=== PATIENT | male | born 1960 | race Caucasian/White ===

== ENCOUNTER 2020-11-11 14:07 | Emergency (ER) | payer OTHER ==
[~2020-11-11] VITALS: Ht 187 cm; Wt 122.0 kg
[~2020-11-11 14:07] MED LIST: ACHD5005 PO; ASPI-624 PO; FENO145T PO; HYDR1TAB86; INSU100V5 SQ; Insulin Human Lispro SC; LISI2.5T; LISI40TA PO; MTF500TCR PO; OMEP-10 PO; PRD20T PO; VICODIN
[2020-11-11] MEDS ORDERED: ASPIRIN 81 MG CHEW (CHILDREN'S ASA) PO ONE (14:30)
--- NOTE | 2020-11-11 14:31 | ED Chest Pain ---
General Chief Complaint: Chest Pain Stated Complaint: HIGH BP Source: patient Exam Limitations: no limitations History of Present Illness Date Seen by Provider: Nov 11, 2020 Time Seen by Provider: 14:29 Initial Comments To ER with reports of chest pain and high blood pressure. This is been ongoing since he had Covid in September. The chest pain is left-sided heavy and pressure in nature. It then radiates up the left side of his neck. He does smoke 1 pack of cigarettes daily for the past 5 years. He is diabetic and he is overweight. His father had a CABG. He himself had a cardiac catheterization in 2013 here which showed nonobstructive coronary disease. He was able to play golf Sunday without any chest pain and activity does not bring about the chest pain. He also has a history of Galo's esophagus but this feels different. The pain has been intermittent but worsening over the past week. Timing/Duration: getting worse, intermittent Severity/Quality: moderate Location: central Radiation: no radiation Activities at Onset: none ASA po CASE SUPERVISOR: No NTG SL CASE SUPERVISOR: No Allergies and Home Medications Allergies Coded Allergies: naproxen (Unverified Allergy, Severe, TIA, 04/03/09) Patient Home Medication List Home Medication List Reviewed: Yes Aspirin (Aspirin) 81 Mg Tablet, 81 MG PO DAILY Prescribed by: BIANKA AG on 06/27/13 1537 Fenofibrate,Micronized (Tricor) 145 Mg Tablet, 1 TAB PO DAILY Prescribed by: BIANKA AG on 06/27/13 1506 Insulin Detemir (Levemir) 1 Unit/0.01 Ml Soln, 25 UNIT SQ HS Prescribed by: SID DUMONT on 06/27/13 1434 Lisinopril (Prinivil) 40 Mg Tablet, 40 MG PO DAILY Prescribed by: BIANKA AG on 06/27/13 1506 Metformin Hcl (Glucophage Xr) 500 Mg Tab, 500 MG PO DAILY@07 Prescribed by: SID DUMONT on 06/27/13 1434 Omeprazole (Prilosec 20 Mg) 20 Mg Capsule., 40 MG PO BID, (Reported) Entered as Reported by: HYACINTH HYATT on 04/03/09 0510 Pantoprazole Sodium (Protonix) 40 Mg Granpkt., 40 MG PO DAILY Prescribed by: TIEN DINERO on 11/11/20 1710 [Insulin Human Lispro] 1 UNIT/0.01 ML JESSE, 15 UNIT SC AC Prescribed by: SID DUMONT on 06/27/13 1434 Review of Systems Review of Systems Constitutional: see HPI EENTM: No Symptoms Reported Respiratory: No Symptoms Reported Cardiovascular: No Symptoms Reported Gastrointestinal: See HPI Genitourinary: No Symptoms Reported Musculoskeletal: no symptoms reported Skin: no symptoms reported Psychiatric/Neurological: No Symptoms Reported Endocrine: No Symptoms Reported Hematologic/Lymphatic: No Symptoms Reported Past Trgvrax-Ugnbgd-Qbnwvn Hx Past Medical History Asthma, COPD, Emphysema Reproductive Disorders: No Diabetes, Non-Insulin dep PTSD Family Medical History Cancer 19 FATHER 19 MOTHER Family history: Cardiovascular disease 19 FATHER Family history: Diabetes mellitus 19 MOTHER Family history: Thyroid disorder G8 SISTER Heart disease 19 FATHER History of - respiratory disease 19 FATHER Physical Exam Vital Signs Vital Signs - First Documented 11/11/20 14:10 Pulse 70 Resp 16 B/P (MAP) 205/129 (154) Pulse Ox 98 O2 Delivery Room Air Capillary Refill : Height, Weight, BMI Height: 6'2.00" Weight: 304lbs. oz. 137.959643lp; BMI Method:Stated General Appearance: No Apparent Distress, WD/WN, Other (Alert and oriented no distress. Hypertensive at 205/129 heart rate is 70 sinus with occasional PVC. EKG shows sinus rhythm at [address] segment elevation.) HEENT: PERRL/EOMI, TMs Normal Neck: Full Range of Motion, Normal Inspection Respiratory: No Accessory Muscle Use, No Respiratory Distress Cardiovascular: Regular Rate, Rhythm, Normal Peripheral Pulses Gastrointestinal: Normal Bowel Sounds, Non Tender, Soft Extremity: Normal Capillary Refill, Normal Inspection Neurologic/Psychiatric: Alert, Oriented x3 Skin: Normal Color, Warm/Dry Progress/Results/Core Measures Results/Orders Lab Results Laboratory Tests Test 11/11/20 14:20 11/11/20 16:26 Range/Units White Blood Count 9.6 4.3-11.0 10^3/uL Red Blood Count 5.26 4.30-5.52 10^6/uL Hemoglobin 16.4 13.3-17.7 g/dL Hematocrit 48 40-54 % Mean Corpuscular Volume 91 80-99 fL Mean Corpuscular Hemoglobin 31 25-34 pg Mean Corpuscular Hemoglobin Concent 34 32-36 g/dL Red Cell Distribution Width 14.2 10.0-14.5 % Platelet Count 241 130-400 10^3/uL Mean Platelet Volume 10.6 9.0-12.2 fL Immature Granulocyte % (Auto) 1 % Neutrophils (%) (Auto) 54 42-75 % Lymphocytes (%) (Auto) 33 12-44 % Monocytes (%) (Auto) 8 0-12 % Eosinophils (%) (Auto) 4 0-10 % Basophils (%) (Auto) 1 0-10 % Neutrophils # (Auto) 5.1 1.8-7.8 10^3/uL Lymphocytes # (Auto) 3.1 1.0-4.0 10^3/uL Monocytes # (Auto) 0.8 0.0-1.0 10^3/uL Eosinophils # (Auto) 0.4 H 0.0-0.3 10^3/uL Basophils # (Auto) 0.1 0.0-0.1 10^3/uL Immature Granulocyte # (Auto) 0.1 0.0-0.1 10^3/uL Prothrombin Time 12.5 12.2-14.7 SEC INR Comment 0.9 0.8-1.4 Activated Partial Thromboplast Time 36 H 24-35 SEC Sodium Level 138 135-145 MMOL/L Potassium Level 3.6 3.6-5.0 MMOL/L Chloride Level 102 98-107 MMOL/L Carbon Dioxide Level 25 21-32 MMOL/L Anion Gap 11 5-14 MMOL/L Blood Urea Nitrogen 13 7-18 MG/DL Creatinine 0.94 0.60-1.30 MG/DL Estimat Glomerular Filtration Rate 82 BUN/Creatinine Ratio 14 Glucose Level 125 H 70-105 MG/DL Calcium Level 9.4 8.5-10.1 MG/DL Corrected Calcium 9.4 8.5-10.1 MG/DL Magnesium Level 1.7 1.6-2.4 MG/DL Total Bilirubin 0.4 0.1-1.0 MG/DL Aspartate Amino Transf (AST/SGOT) 17 5-34 U/L Alanine Aminotransferase (ALT/SGPT) 23 0-55 U/L Alkaline Phosphatase 95 40-136 U/L Myoglobin 34.9 10.0-92.0 NG/ML Troponin I < 0.028 < 0.028 <0.028 NG/ML B-Type Natriuretic Peptide 276.2 H <100.0 PG/ML Total Protein 7.2 6.4-8.2 GM/DL Albumin 4.0 3.2-4.5 GM/DL My Orders Orders - TIEN DINERO APRN Cbc With Automated Diff (11/11/20 14:18) Magnesium (11/11/20 14:18) Chest 1 View, Ap/Pa Only (11/11/20 14:18) Ekg Tracing (11/11/20 14:18) Comprehensive Metabolic Panel (11/11/20 14:18) Myoglobin Serum (11/11/20 14:18) Protime With Inr (11/11/20 14:18) Partial Thromboplastin Time (11/11/20 14:18) O2 (11/11/20 14:18) Monitor-Rhythm Ecg Trace Only (11/11/20 14:18) Lipid Panel (11/12/20 06:00) Ed Iv/Invasive Line Start (11/11/20 14:18) BNP (11/11/20 14:18) Troponin I (11/11/20 14:18) Aspirin Chewable Tablet (Baby Aspirin Ch (11/11/20 14:30) Nitroglycerin 0.4 Mg Btl 25's (Nitrostat (11/11/20 14:30) Antacid Suspension (Mylanta Suspension (11/11/20 15:45) Lidocaine 2% Viscous 15 Ml (Xylocaine Vi (11/11/20 15:45) Acetaminophen Tablet (Tylenol Tablet) (11/11/20 15:45) Troponin I (11/11/20 16:07) Medications Given in ED Current Medications Medications Dose Ordered Sig/Jewel Route Start Time Stop Time Status Last Admin Dose Admin Acetaminophen 1,000 mg ONCE ONCE PO 11/11/20 15:45 11/11/20 15:46 DC 11/11/20 15:56 1,000 MG Al Hydrox/Mg Hydrox/Simethicone 30 ml ONCE ONCE PO 11/11/20 15:45 11/11/20 15:46 DC 11/11/20 15:54 30 ML Aspirin 324 mg ONCE ONCE PO 11/11/20 14:30 11/11/20 14:31 DC 11/11/20 14:38 324 MG Lidocaine HCl 15 ml ONCE ONCE PO 11/11/20 15:45 11/11/20 15:46 DC 11/11/20 15:54 15 ML Nitroglycerin 1 TAB Q 5 MIN X 3 NEEDED PRN SL 11/11/20 14:30 11/11/20 15:04 0.4 MG Vital Signs/I&O 11/11/20 14:10 Pulse 70 Resp 16 B/P (MAP) 205/129 (154) Pulse Ox 98 O2 Delivery Room Air Departure Communication (Admissions) Family Conversation He did have a cardiac catheterization here by Dr. Hanson in 2013 showing normal coronaries. 1544-chest pain is better though not entirely gone. He does have a headache from the nitro. I ordered a GI cocktail given his history of Galo's esophagus, his pain may be related to that. He does report he has been having some difficulty swallowing lately. Ordered some Tylenol for his headache. We will do a repeat troponin at the 2-hour mendel. He is concerned because his heart rate has been dropping to 30 for about 15 seconds for the past few mornings. 1713-HR 62 sinus with occasional PVC. BP 168/110. Will give norvasc and dc to home for outpatient follow up. NAME: LORETTA JIMENEZ [facility] REC#: [id number] PT STATUS: REG ER : 1960 PHYSICIAN: TIEN DINERO APRN ADMIT DATE: 11/11/20/ER Draft Date of Exam:11/11/20 CHEST 1 VIEW, AP/PA ONLY EXAMINATION: Chest 1 view HISTORY: Chest pain COMPARISON: 06/26/2013 FINDINGS: The lungs are clear without edema or pneumonia. No pleural effusion or pneumothorax. Heart size is normal. IMPRESSION: 1. Clear lungs. Dictated on workstation # [id number] Dict: 11/11/20 1439 Trans: 11/11/20 1440 [id number] Interpreted by: LORETTA BUENROSTRO MD Electronically signed by: Impression Primary Impression: Chest pain Additional Impression: GERD (gastroesophageal reflux disease) Disposition: 01 HOME, SELF-CARE Condition: Stable Departure-Patient Inst. Decision time for Depature: 17:09 Referrals: TRACY CURTIS MD FACP [facility] BECKI HOBBS MD NO,LOCAL PHYSICIAN (PCP) Primary Care Physician Patient Instructions: Chest Pain (DC) Add. Discharge Instructions: 1. Medication as directed. Follow-up with 1 the public health analyst. Call tomorrow make an appointment to be seen. All discharge instructions reviewed with patient and/or family. Voiced understanding. Scripts Pantoprazole Sodium (Protonix) 40 Mg Axel. 40 MG PO DAILY, #20 TAB Prov: TIEN DINERO APRN 11/11/20 TIEN DINERO APRN Nov 11, 2020 14:31
[2020-11-11 14:37] LABS: BASOPHILS # (AUTO) 0.1 10^3/uL (0.0-0.1); BASOPHILS % (AUTO) 1 % (0-10); EOSINOPHILS # (AUTO) 0.4 10^3/uL (0.0-0.3); EOSINOPHILS % (AUTO) 4 % (0-10); HEMATOCRIT 48 % (40-54); HEMOGLOBIN 16.4 g/dL (13.3-17.7); LYMPHOCYTES # (AUTO) 3.1 10^3/uL (1.0-4.0); LYMPHOCYTES % (AUTO) 33 % (12-44); MEAN CORPUSCULAR HEMOGLOBIN 31 pg (25-34); MEAN CORPUSCULAR HGB CONC 34 g/dL (32-36); MEAN CORPUSCULAR VOLUME 91 fL (80-99); MEAN PLATELET VOLUME 10.6 fL (9.0-12.2); MONOCYTES # (AUTO) 0.8 10^3/uL (0.0-1.0); MONOCYTES % (AUTO) 8 % (0-12); NEUTROPHILS # (AUTO) 5.1 10^3/uL (1.8-7.8); NEUTROPHILS % (AUTO) 54 % (42-75); PLATELET COUNT 241 10^3/uL (130-400); WHITE BLOOD COUNT 9.6 10^3/uL (4.3-11.0)
[2020-11-11] MEDS: NITROGLYCERIN 0.4 MG SL TABS BTL 25'S SL PRN ×3 (14:39→15:04)
--- NOTE | 2020-11-11 14:41 | Diagnostic Imaging Report ---
EXAMINATION: Chest 1 view HISTORY: Chest pain COMPARISON: 06/26/2013 FINDINGS: The lungs are clear without edema or pneumonia. No pleural effusion or pneumothorax. Heart size is normal. IMPRESSION: 1. Clear lungs. Dictated by: Dictated on workstation # [id number]
[2020-11-11 14:53] LABS: POTASSIUM 3.6 MMOL/L (3.6-5.0)
[2020-11-11 14:54] LABS: CALCIUM 9.4 MG/DL (8.5-10.1); INR 0.9 (0.8-1.4); PROTHROMBIN TIME PATIENT 12.5 SEC (12.2-14.7)
[2020-11-11 14:55] LABS: TOTAL PROTEIN 7.2 GM/DL (6.4-8.2)
[2020-11-11 14:57] LABS: BILIRUBIN,TOTAL 0.4 MG/DL (0.1-1.0)
[2020-11-11 14:59] LABS: CREATININE SERUM 0.94 MG/DL (0.60-1.30)
[2020-11-11 15:02] LABS: MAGNESIUM 1.7 MG/DL (1.6-2.4)
[2020-11-11] MEDS ORDERED: ANTACID SUSP 30 ML UDC (MYLANTA) PO ONE (15:45)
[2020-11-11] MEDS ORDERED: LIDOCAINE 2% VISCOUS 15 ML UDC PO ONE (15:45)
[2020-11-11] MEDS ORDERED: ACETAMINOPHEN 500 MG TAB (TYLENOL) PO ONE (15:45)
[2020-11-11] MEDS ORDERED: PANT40SU PO (17:10)
[2020-11-11] MEDS ORDERED: amLODIPine 5 MG (NORVASC) TAB PO ONE (17:15)
[2020-11-11 17:33] VITALS: BP 160/104
[2020-11-12] MEDS ORDERED: AMLO10TA4 PO (12:04)
== END 2020-11-11 17:33 | disposition home or self-care (01) ==
LOC: EDUNIT# 14:07 → ER 14:09
DX: R07.89 Other chest pain (principal); K21.9 Gastro-esophageal reflux disease without esophagitis; E11.9 Type 2 diabetes mellitus without complications; J43.9 Emphysema, unspecified; Z79.4 Long term (current) use of insulin; Z79.82 Long term (current) use of aspirin
CPT/HCPCS: 36415; 71045; 80053; 83735; 83874; 83880; 84484; 85025; 85610; 85730; 93005; 93041

== ENCOUNTER 2020-11-12 10:08 | Emergency (ER) | payer OTHER ==
[~2020-11-12] VITALS: Ht 187.9 cm; Wt 124.7 kg
[~2020-11-12 10:08] MED LIST changes: +PANT40SU PO
--- NOTE | 2020-11-12 10:58 | ED Chest Pain ---
General Chief Complaint: Cardiac/General Problems Stated Complaint: HIGH BP Nursing Triage Note: PT AMB TO RM 3 WITH COMPLAINT OF SOB, DIZZY, AND HTN. WAS SEEN IN ER YESTERDAY FOR SAME COMPLAINT. STATES IN THE MORNING, HR WILL DROP INTO 30s Source: patient Exam Limitations: no limitations History of Present Illness Date Seen by Provider: Nov 12, 2020 Time Seen by Provider: 10:40 Initial Comments To ER by private vehicle with reports of shortness of breath dizziness and high blood pressure. He was seen in ER yesterday for the same with 2 troponins. He was most worried yesterday because his heart rate would drop into the 30s in the mornings he states. It does this until about 2 PM and then it goes back to normal. He went home after being discharged yesterday and watched a football game with friends and felt well. This morning he got up and initially felt well but then again felt his pulse and could barely feel it and checked his blood p ressure and the machine read it to be about 30. Despite that his blood pressure was 180s over 110. He is on lisinopril for hypertension. No chest pain today. Timing/Duration: changing over time Severity/Quality: moderate Radiation: no radiation Prior CP/Workup: no prior chest pain ASA po CANDLE MAKING SUPERVISOR: No NTG SL CANDLE MAKING SUPERVISOR: No Allergies and Home Medications Allergies Coded Allergies: naproxen (Unverified Allergy, Severe, TIA, 04/03/09) Patient Home Medication List Home Medication List Reviewed: Yes Aspirin (Aspirin) 81 Mg Tablet, 81 MG PO DAILY Prescribed by: BIANKA AG on 06/27/13 1537 Fenofibrate,Micronized (Tricor) 145 Mg Tablet, 1 TAB PO DAILY Prescribed by: BIANKA AG on 06/27/13 1506 Insulin Detemir (Levemir) 1 Unit/0.01 Ml Soln, 25 UNIT SQ HS Prescribed by: SID DUMONT on 06/27/13 1434 Lisinopril (Prinivil) 40 Mg Tablet, 40 MG PO DAILY Prescribed by: BIANKA AG on 06/27/13 1506 Metformin Hcl (Glucophage Xr) 500 Mg Tab, 500 MG PO DAILY@07 Prescribed by: SID DUMONT on 06/27/13 1434 Omeprazole (Prilosec 20 Mg) 20 Mg Capsule.dr 40 MG PO BID, (Reported) Entered as Reported by: HYACINTH HYATT on 04/03/09 0510 Pantoprazole Sodium (Protonix) 40 Mg , 40 MG PO DAILY Prescribed by: TIEN DINERO on 11/11/20 1710 [Insulin Human Lispro] 1 UNIT/0.01 ML JESSE, 15 UNIT SC AC Prescribed by: SID DUMONT on 06/27/13 1434 Review of Systems Review of Systems Constitutional: see HPI EENTM: No Symptoms Reported Respiratory: No Symptoms Reported Cardiovascular: See HPI, Irregular Heart Rate Gastrointestinal: See HPI Genitourinary: No Symptoms Reported Musculoskeletal: no symptoms reported Skin: no symptoms reported Psychiatric/Neurological: No Symptoms Reported Endocrine: No Symptoms Reported Hematologic/Lymphatic: No Symptoms Reported Past Pxozlhd-Lgtdww-Nsmscf Hx Patient Social History Tobacco Use?: Yes Tobacco type used: Cigarettes Smoking Status: Current Everyday Smoker Use of E-Cig and/or Vaping dev: No Alcohol Use?: Yes Alcohol Frequency: Couple times a week Pt feels they are or have been: No Past Medical History Asthma, COPD, Emphysema Reproductive Disorders: No Diabetes, Non-Insulin dep PTSD Family Medical History Cancer 19 FATHER 19 MOTHER Family history: Cardiovascular disease 19 FATHER Family history: Diabetes mellitus 19 MOTHER Family history: Thyroid disorder G8 SISTER Heart disease 19 FATHER History of - respiratory disease 19 FATHER Physical Exam Vital Signs Vital Signs - First Documented 11/12/20 10:25 Pulse 68 Resp 20 B/P (MAP) 173/113 (133) Pulse Ox 94 O2 Delivery Room Air Capillary Refill : Less Than 3 Seconds Height, Weight, BMI Height: 6'2.00" Weight: 304lbs. oz. 137.132128bi; 35.00 BMI Method:Stated General Appearance: No Apparent Distress, WD/WN, Other (Alert and oriented no distress. No nystagmus. Heart rate is in the 70s sinus with occasional PVC. Blood pressure 179/110.) HEENT: PERRL/EOMI, TMs Normal Respiratory: No Accessory Muscle Use, No Respiratory Distress Cardiovascular: Regular Rate, Rhythm, Normal Peripheral Pulses Gastrointestinal: Normal Bowel Sounds, Non Tender, Soft Extremity: Normal Capillary Refill, Normal Inspection Neurologic/Psychiatric: Alert, Oriented x3 Skin: Normal Color, Warm/Dry Progress/Results/Core Measures Results/Orders Lab Results Laboratory Tests Test 11/12/20 11:26 Range/Units White Blood Count 8.1 4.3-11.0 10^3/uL Red Blood Count 5.58 H 4.30-5.52 10^6/uL Hemoglobin 17.2 13.3-17.7 g/dL Hematocrit 51 40-54 % Mean Corpuscular Volume 91 80-99 fL Mean Corpuscular Hemoglobin 31 25-34 pg Mean Corpuscular Hemoglobin Concent 34 32-36 g/dL Red Cell Distribution Width 14.3 10.0-14.5 % Platelet Count 219 130-400 10^3/uL Mean Platelet Volume 10.5 9.0-12.2 fL Immature Granulocyte % (Auto) 1 % Neutrophils (%) (Auto) 60 42-75 % Lymphocytes (%) (Auto) 28 12-44 % Monocytes (%) (Auto) 7 0-12 % Eosinophils (%) (Auto) 3 0-10 % Basophils (%) (Auto) 1 0-10 % Neutrophils # (Auto) 4.9 1.8-7.8 10^3/uL Lymphocytes # (Auto) 2.3 1.0-4.0 10^3/uL Monocytes # (Auto) 0.6 0.0-1.0 10^3/uL Eosinophils # (Auto) 0.2 0.0-0.3 10^3/uL Basophils # (Auto) 0.0 0.0-0.1 10^3/uL Immature Granulocyte # (Auto) 0.1 0.0-0.1 10^3/uL Sodium Level 139 135-145 MMOL/L Potassium Level 4.0 3.6-5.0 MMOL/L Chloride Level 104 98-107 MMOL/L Carbon Dioxide Level 24 21-32 MMOL/L Anion Gap 11 5-14 MMOL/L Blood Urea Nitrogen 10 7-18 MG/DL Creatinine 0.83 0.60-1.30 MG/DL Estimat Glomerular Filtration Rate 95 BUN/Creatinine Ratio 12 Glucose Level 138 H 70-105 MG/DL Calcium Level 9.7 8.5-10.1 MG/DL Troponin I < 0.028 <0.028 NG/ML My Orders Orders - TIEN DINERO APRN Cbc With Automated Diff (11/12/20 10:49) Basic Metabolic Panel (11/12/20 10:49) Troponin I (11/12/20 10:49) Ekg Tracing (11/12/20 10:49) Ed Iv/Invasive Line Start (11/12/20 10:49) Alprazolam Tablet (Xanax Tablet) (11/12/20 11:00) Amlodipine Tablet (Norvasc Tablet) (11/12/20 11:00) Medications Given in ED Current Medications Medications Dose Ordered Sig/Jewel Route Start Time Stop Time Status Last Admin Dose Admin Amlodipine Besylate 5 mg ONCE ONCE PO 11/12/20 11:00 11/12/20 11:01 DC 11/12/20 11:24 5 MG Vital Signs/I&O 11/12/20 10:25 Pulse 68 Resp 20 B/P (MAP) 173/113 (133) Pulse Ox 94 O2 Delivery Room Air Blood Pressure Mean: 133 Departure Communication (Admissions) I will get him set up with an outpatient Holter monitor. Will discharge from the ER over to the heart center to get that done. His EKG again shows sinus rhythm at 67 with a PVC no ST segment change. 1202-labs are back and unremarkable. Again his heart rate has been sinus without a rate less than 65. I will send him over to outpatient heart center to get Holter monitor. Impression Primary Impression: Hypertension Disposition: HOME, SELF-CARE Condition: Stable Departure-Patient Inst. Decision time for Depature: 12:02 Referrals: TRACY CURTIS MD [facility] BECKI HOBBS MD NO,LOCAL PHYSICIAN (PCP) Primary Care Physician HYACINTH CARPIO JR, MD Patient Instructions: High Blood Pressure ED Add. Discharge Instructions: 1. Go directly from here to the outpatient heart center to get the Holter monitor applied. This will stay in place for 48 hours and then you will return it. You need to follow-up with cardiology. Call today to make an appointment to be seen if you did not do so yesterday. All discharge instructions reviewed with patient and/or family. Voiced understanding. Scripts Amlodipine Besylate (Norvasc) 10 Mg Tablet 10 MG PO DAILY, #20 TAB Prov: TIEN DINERO APRN 11/12/20 TIEN DINERO APRN Nov 12, 2020 10:58
[2020-11-12] MEDS ORDERED: amLODIPine 5 MG (NORVASC) TAB PO ONE (11:00)
[2020-11-12] MEDS ORDERED: ALPRAZolam 0.25 MG (XANAX) TAB PO ONE (11:00)
[2020-11-12 11:34] LABS: BASOPHILS % (AUTO) 1 % (0-10); EOSINOPHILS # (AUTO) 0.2 10^3/uL (0.0-0.3); EOSINOPHILS % (AUTO) 3 % (0-10); HEMATOCRIT 51 % (40-54); HEMOGLOBIN 17.2 g/dL (13.3-17.7); LYMPHOCYTES # (AUTO) 2.3 10^3/uL (1.0-4.0); LYMPHOCYTES % (AUTO) 28 % (12-44); MEAN CORPUSCULAR HEMOGLOBIN 31 pg (25-34); MEAN CORPUSCULAR HGB CONC 34 g/dL (32-36); MEAN CORPUSCULAR VOLUME 91 fL (80-99); MEAN PLATELET VOLUME 10.5 fL (9.0-12.2); MONOCYTES # (AUTO) 0.6 10^3/uL (0.0-1.0); MONOCYTES % (AUTO) 7 % (0-12); NEUTROPHILS # (AUTO) 4.9 10^3/uL (1.8-7.8); NEUTROPHILS % (AUTO) 60 % (42-75); PLATELET COUNT 219 10^3/uL (130-400); WHITE BLOOD COUNT 8.1 10^3/uL (4.3-11.0)
[2020-11-12 11:44] LABS: CHLORIDE 104 MMOL/L (98-107); SODIUM 139 MMOL/L (135-145)
[2020-11-12 11:45] LABS: CALCIUM 9.7 MG/DL (8.5-10.1)
[2020-11-12 11:46] LABS: GLUCOSE 138 MG/DL (70-105)
[2020-11-12 11:47] LABS: CARBON DIOXIDE 24 MMOL/L (21-32)
[2020-11-12 11:50] LABS: CREATININE SERUM 0.83 MG/DL (0.60-1.30); GFR ESTIMATED 95
[2020-11-12 11:51] LABS: BUN/CREATININE RATIO 12
[2020-11-12] MEDS ORDERED: AMLO10TA4 PO (12:04)
[2020-11-12 12:20] VITALS: BP 169/93
== END 2020-11-12 12:20 | disposition home or self-care (01) ==
LOC: EDUNIT# 10:08 → ER 10:09
DX: I10 Essential (primary) hypertension (principal); J44.9 Chronic obstructive pulmonary disease, unspecified; E11.9 Type 2 diabetes mellitus without complications; F17.210 Nicotine dependence, cigarettes, uncomplicated; Z79.84 Long term (current) use of oral hypoglycemic drugs; Z79.82 Long term (current) use of aspirin; Z79.899 Other long term (current) drug therapy
CPT/HCPCS: 36415; 80048; 84484; 85025; 93005

== ENCOUNTER → 2020-12-07 | Outpatient (CLI) | payer OTHER ==
[~2020-12-07] MED LIST changes: +AMLO10TA4 PO
== END ==
LOC: CARD 14:30
PROVIDERS: ATTEND Internal Medicine Cardiovascular Disease
DX: I51.7 Cardiomegaly (principal)
CPT/HCPCS: 93225; 93226; 93306

== ENCOUNTER 2021-04-18 05:43 | Outpatient (RCR) | payer OTHER | END 2021-05-12 | disposition home or self-care (01) | LOC: PREOP 05:43 | PROVIDERS: ATTEND Surgery | DX: Z01.818 Encounter for other preprocedural examination (principal) ==

== ENCOUNTER → 2021-06-30 | Outpatient (CLI) | payer OTHER ==
--- NOTE | 2021-06-30 11:43 | Diagnostic Imaging Report ---
PROCEDURE: US left lower extremity venous. TECHNIQUE: Multiple real-time grayscale images were obtained over the left lower extremity in various projections. Additional duplex Doppler and color Doppler images were also obtained. INDICATION: Left leg pain The veins of the left leg have good color filling and compressibility. There is phasic flow and a normal response to augmentation. IMPRESSION: Negative venous Doppler left leg Dictated by: Dictated on workstation # [id number]
== END ==
LOC: RAD 10:30
PROVIDERS: ATTEND Nurse Practitioner
DX: Z01.89 Encounter for other specified special examinations (principal); M79.605 Pain in left leg

== ENCOUNTER → 2021-07-19 | Outpatient (CLI) | payer OTHER ==
--- NOTE | 2021-07-19 12:36 | Diagnostic Imaging Report ---
INDICATION: Left knee pain. TIME OF EXAM: 11:07 AM FINDINGS: 4 views left knee were obtained. Alignment is normal. Joint spaces are fairly well maintained. Very mild degenerative changes are noted involving all 3 compartments with mild marginal spurring present. No fracture or dislocation is seen. There is some suprapatellar fullness suggestive of a small joint effusion. IMPRESSION: Degenerative changes and small joint effusion. No acute bony abnormality is detected. Dictated by: Dictated on workstation # [id number]
== END ==
LOC: ORTHO 10:10
PROVIDERS: ATTEND Orthopaedic Surgery
DX: M17.11 Unilateral primary osteoarthritis, right knee (principal)
CPT/HCPCS: 73564; 99203

== ENCOUNTER → 2021-08-09 | Outpatient (CLI) | payer OTHER | LOC: ORTHO 13:16 | PROVIDERS: ATTEND Orthopaedic Surgery | DX: M17.12 Unilateral primary osteoarthritis, left knee (principal) | CPT/HCPCS: 99213 ==

== ENCOUNTER → 2021-08-19 | Outpatient (CLI) | payer OTHER ==
--- NOTE | 2021-08-19 13:20 | Diagnostic Imaging Report ---
PROCEDURE: MRI left joint lower extremity without contrast. TECHNIQUE: Multiplanar, multisequence non contrast-enhanced MRI of the left lower extremity was accomplished. INDICATION: Left ankle pain COMPARISON: Radiograph from 07/24/2011 FINDINGS: No acute fracture is seen in the left ankle. There appears to be an old avulsion fracture at the lateral malleolus. Small subcortical cystlike changes noted at the lateral cuneiform, which is likely degenerative. There is no joint effusion. The anterior and posterior syndesmotic ligaments are intact. The anterior talofibular ligament appears thickened, as does the calcaneofibular ligament, likely from old trauma. The posterior talofibular ligament is intact. The deep fibers of the deltoid ligament appear intact. The spring ligament is intact. The plantar fascia is not thickened. The sinus tarsi demonstrates normal fat signal. The Achilles tendon is intact although there is a large calcaneal enthesophyte. The peroneal tendons appear intact. The flexor tendons are intact. The extensor tendons are intact. No focal muscular atrophy is seen. No soft tissue masses or fluid collections are identified. IMPRESSION: 1. Sequela from old lateral ligamentous injuries. Old lateral malleolus avulsion fracture. 2. Large Achilles tendon enthesophyte at the calcaneus. 3. Mild degenerative changes in the midfoot. Dictated by: Dictated on workstation # [id number]
== END ==
LOC: RAD 08:45
PROVIDERS: ATTEND Nurse Practitioner
DX: Z01.89 Encounter for other specified special examinations (principal); M77.52 Other enthesopathy of left foot and ankle; M19.072 Primary osteoarthritis, left ankle and foot; S99.912S Unspecified injury of left ankle, sequela; Z87.81 Personal history of (healed) traumatic fracture
CPT/HCPCS: 73721

== ENCOUNTER 2021-08-30 08:00 | Outpatient (RCR) | payer OTHER | END 2021-09-11 | disposition home or self-care (01) | PROVIDERS: ATTEND Orthopaedic Surgery | DX: M17.12 Unilateral primary osteoarthritis, left knee (principal); I10 Essential (primary) hypertension; J45.909 Unspecified asthma, uncomplicated ==

== ENCOUNTER → 2021-09-27 | Outpatient (CLI) | payer OTHER | LOC: ORTHO 16:58 | PROVIDERS: ATTEND Orthopaedic Surgery | DX: M17.12 Unilateral primary osteoarthritis, left knee (principal) | CPT/HCPCS: 99213 ==

== ENCOUNTER → 2021-10-04 | Outpatient (CLI) | payer OTHER ==
--- NOTE | 2021-10-04 16:00 | Diagnostic Imaging Report ---
PROCEDURE: MRI left joint lower extremity without contrast. TECHNIQUE: Multiplanar, multisequence [id number] MRI of the left lower extremity was accomplished. INDICATION: Left knee pain. COMPARISON: Radiographs from 07/19/2021. FINDINGS: No acute fracture is seen in the left knee. Alignment appears normal. There is a moderate left knee joint effusion. There are marginal osteophytes in all three compartments. The articular cartilage in the patellofemoral compartment demonstrates mild surface irregularity with no full-thickness defects. The cartilage in the medial compartment demonstrates marked thinning with no full-thickness defects. The cartilage in the lateral compartment demonstrates mild thinning with no full-thickness defects. The medial meniscus appears intact. The lateral meniscus demonstrates mild intrasubstance degeneration, but no definite tear is seen. The anterior and posterior cruciate ligaments are intact. The medial collateral ligament is intact. The lateral collateral ligamentous complex is intact. The extensor mechanism is intact. The medial and lateral retinacula are intact. Soft tissues about the knee are otherwise unremarkable. IMPRESSION: 1. Tricompartmental degenerative change and cartilage loss in the left knee, most pronounced in the medial compartment. 2. Intrasubstance degeneration of the lateral meniscus. No meniscus tear is seen. 3. Moderate left knee joint effusion. Dictated by: Dictated on workstation # [id number]
== END ==
LOC: RAD 09:11
PROVIDERS: ATTEND Orthopaedic Surgery
DX: M17.12 Unilateral primary osteoarthritis, left knee (principal)
CPT/HCPCS: 73721